=== PATIENT | female | born 1960 | race African-American/Black ===

== ENCOUNTER 2017-02-26 23:19 | Emergency (ER) | payer MEDICAID ==
[~2017-02-26 23:19] MED LIST: DILA100C PO; LEVE500 PO; LISI-519 PO
[2017-02-26 23:22] VITALS: BP 121/75; PULSE 59; RESP 18; TEMP 99; O2SAT 100
[2017-02-26] MEDS ORDERED: SODIUM CHLOR 0.9% 1000 ML INJ 1,000 ML IV ONE (23:31)
[2017-02-26] MEDS ORDERED: SODIUM CHLORIDE 0.9% FLUSH 10 ML FLUSH IVF PRN (23:45)
--- NOTE | 2017-02-26 23:59 | PD ---
HPI Chief Complaint: Altered Mental Status Time Seen by Provider: 23:31 Travel History International Travel<30 days: No Contact w/Intl Traveler<30days: No Traveled to known affect area: No History of Present Illness HPI 56-year-old female presents to the emergency department by EMS transport from home for evaluation of shortness of breath and confusion. EMS reports she may have had a seizure-like event while in the ambulance. No medications were administered episode was brief. 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 No report of incontinence or tongue trauma. No generalized tonic-clonic seizure. Patient does have history of seizure disorder is reportedly on Keppra and Dilantin. Patient here is unable to explain why she came to the hospital. According to paramedics patient was found by herself in the home. Unknown how long patient was by herself. 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 Patient denies any fever. PFSH Past Medical History Narrative Medical Anxiety depression CVA seizure disorder headache hypertension cholecystectomy no tobacco use nursing notes reviewed Asthma: No Blood Disorders: No Anxiety: Yes Depression: Yes Heart Rhythm Problems: No Cancer: No Cardiovascular Problems: No High Cholesterol: No Chemotherapy: No Chest Pain: No Congestive Heart Failure: No COPD: No Cerebrovascular Accident: Yes (STROKE X3- R. SIDED WEAKNESS ) Diabetes: No Diminished Hearing: No Endocrine: No Gastrointestinal Disorders: No GERD: No Genitourinary: No Headaches: Yes Hiatal Hernia: No Hypertension: Yes Implanted Vascular Access Dvce: No Kidney Stones: No Musculoskeletal: Yes (RT SIDE STROKES X 3, chronic pain and spasm.) Neurologic: Yes Psychiatric: Yes Reproductive: No Respiratory: No Immunizations Current: Yes Migraines: No Renal Failure: No Seizures: Yes Sleep Apnea: No Thyroid Disease: No Ulcer: No PNEUMOCCOCAL Vaccine (Year): 3 Menopausal: Yes : 2 Para: 2 Tubal Ligation: Yes Past Surgical History Abdominal Surgery: Yes Cardiac Surgery: No Cholecystectomy: Yes Ear Surgery: No Endocrine Surgery: No Eye Surgery: No Genitourinary Surgery: No Gynecologic Surgery: No Hysterectomy: Yes Neurologic Surgery: No Oral Surgery: No Thoracic Surgery: No Social History Alcohol Use: No Tobacco Use: No Substance Use: No Allergies-Medications (Allergen,Severity, Reaction): Coded Allergies: No Known Allergies (Verified , 08/25/16) Reported Meds & Prescriptions Reported Meds & Active Scripts Active Dilantin (Phenytoin Extended) 100 Mg Cap 100 Mg PO TID Keppra (Levetiracetam) 500 Mg Tab 500 Mg PO BID Reported Cyproheptadine (Cyproheptadine HCl) 4 Mg Tab 4 Mg PO TID Levetiracetam 500 Mg Tab 500 Mg PO BID Lisinopril 5 Mg Tab 5 Mg PO DAILY Review of Systems ROS Limitations: Clinical Condition, Poor Historian Except as stated in HPI: all other systems reviewed are Neg Physical Exam Narrative GENERAL: Well-developed well-nourished female in no acute distress no respiratory distress; GCS 14 SKIN: Warm and dry. HEAD: Atraumatic. Normocephalic. EYES: Pupils equal and round. Extraocular muscles intact. No scleral icterus. No injection or drainage. ENT: No nasal bleeding or discharge. Mucous membranes pink and moist. Airway is patent. NECK: Trachea midline. No JVD. Supple no nuchal rigidity no meningismus. CARDIOVASCULAR: Regular rate and rhythm. RESPIRATORY: No accessory muscle use. Clear to auscultation. Breath sounds equal bilaterally. GASTROINTESTINAL: Abdomen soft, non-tender, nondistended. Hepatic and splenic margins not palpable. MUSCULOSKELETAL: Extremities without clubbing, cyanosis, or edema. No obvious deformities. NEUROLOGICAL: Awake but drowsy. No obvious cranial nerve deficits. Motor grossly within normal limits. Five out of 5 muscle strength in the arms and legs. Normal speech. PSYCHIATRIC: Appropriate mood and affect; insight and judgment normal. Data Data Last Documented VS Vital Signs Date Time Temp Pulse Resp B/P Pulse Ox O2 Delivery O2 Flow Rate FiO2 02/27/17 00:11 18 100 02/26/17 23:22 99.0 59 121/75 Orders Complete Blood Count With Diff (02/26/17 23:31) Alcohol (Ethanol) (02/26/17 23:31) Phenytoin (Dilantin) (02/26/17 23:31) Drug Screen, Random Urine (02/26/17 23:31) Blood Culture (02/26/17 23:31) Electrocardiogram (02/26/17 ) Ct Brain W/O Iv Contrast(Rout) (02/26/17 ) Blood Glucose (02/26/17 23:31) Ecg Monitoring (02/26/17 23:31) Iv Access Insert/Monitor (02/26/17 23:31) Oximetry (02/26/17 23:31) Comprehensive Metabolic Panel (02/26/17 23:31) Sodium Chlor 0.9% 1000 Ml Inj (Ns 1000 M (02/26/17 23:31) Sodium Chloride 0.9% Flush (Ns Flush) (02/26/17 23:45) Ua Includes Microscopic (02/26/17 23:31) Troponin I (02/26/17 23:31) Chest, Single Ap (02/26/17 ) Lactic Acid (02/26/17 23:31) Ammonia (02/26/17 23:31) Fosphenytoin Inj (Cerebyx Inj) (02/27/17 02:00) Fosphenytoin Inj (Cerebyx Inj) (02/27/17 02:00) Labs Laboratory Tests Test 02/26/17 02/26/17 02/26/17 23:35 23:45 23:55 White Blood Count 4.2 TH/MM3 Red Blood Count 4.47 MIL/MM3 Hemoglobin 11.8 GM/DL Hematocrit 36.1 % Mean Corpuscular Volume 80.6 FL Mean Corpuscular Hemoglobin 26.3 PG Mean Corpuscular Hemoglobin 32.7 % Concent Red Cell Distribution Width 15.9 % Platelet Count 136 TH/MM3 Mean Platelet Volume 9.8 FL Neutrophils (%) (Auto) 27.3 % Lymphocytes (%) (Auto) 62.3 % Monocytes (%) (Auto) 6.0 % Eosinophils (%) (Auto) 3.9 % Basophils (%) (Auto) 0.5 % Neutrophils # (Auto) 1.1 TH/MM3 Lymphocytes # (Auto) 2.6 TH/MM3 Monocytes # (Auto) 0.3 TH/MM3 Eosinophils # (Auto) 0.2 TH/MM3 Basophils # (Auto) 0.0 TH/MM3 CBC Comment AUTO DIFF Differential Comment AUTO DIFF CONFIRMED Platelet Estimate LOW Platelet Morphology Comment NORMAL Ovalocytes 1+ Keratocytes OCC Urine Color YELLOW Urine Turbidity CLEAR Urine pH 6.0 Urine Specific [place] 1.025 Urine Protein TRACE mg/dL Urine Glucose (UA) NEG mg/dL Urine Ketones NEG mg/dL Urine Occult Blood MOD Urine Nitrite NEG Urine Bilirubin NEG Urine Urobilinogen LESS THAN 2.0 MG/DL Urine Leukocyte Esterase NEG Urine RBC 6 /hpf Urine WBC 2 /hpf Urine Squamous Epithelial <1 /hpf Cells Urine Hyaline Casts 1 /lpf Urine Waxy Casts 1 /lpf Urine Mucus FEW /lpf Urine Opiates Screen NEG Urine Barbiturates Screen NEG Urine Amphetamines Screen NEG Urine Benzodiazepines Screen NEG Urine Cocaine Screen NEG Urine Cannabinoids Screen POS Sodium Level 142 MEQ/L Potassium Level 3.6 MEQ/L Chloride Level 109 MEQ/L Carbon Dioxide Level 26.9 MEQ/L Anion Gap 6 MEQ/L Blood Urea Nitrogen 17 MG/DL Creatinine 0.60 MG/DL Estimat Glomerular Filtration 125 ML/MIN Rate Random Glucose 91 MG/DL Lactic Acid Level 1.6 mmol/L Calcium Level 8.4 MG/DL Total Bilirubin 0.1 MG/DL Aspartate Amino Transf 16 U/L (AST/SGOT) Alanine Aminotransferase 22 U/L (ALT/SGPT) Alkaline Phosphatase 93 U/L Ammonia 55 MCMOL/L Troponin I LESS THAN 0.02 NG/ML Total Protein 6.6 GM/DL Albumin 3.9 GM/DL Phenytoin (Dilantin) Level 4.9 MCG/ML Ethyl Alcohol Level LESS THAN 3 MG/DL MDM Medical Decision Making Medical Screen Exam Complete: Yes Emergency Medical Condition: Yes Medical Record Reviewed: Yes Interpretation(s) EKG: Sinus bradycardia rate [address] elevation or injury pattern nonspecific T-wave changes septally in V1 V2 Differential Diagnosis Seizure, postictal, TIA, CVA, ICH, CHI, sepsis, electrolyte disturbance, metabolic encephalopathy, overdose Narrative Course 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 Patient is otherwise stable for outpatient management. Diagnosis Primary Impression: Seizure Additional Impressions: Subtherapeutic serum dilantin level Hyperammonemia Use of cannabis Medication refill Referrals: Primary Care Physician 3 days Patient Instructions: General Instructions Additional Instructions: Follow-up with your primary care provider Take medications as prescribed Discontinue cannabis use Do not take these medications with alcoholic beverages Return to the emergency department for any concerns or change in condition Med/Other Pt SpecificInfo: Prescription(s) given Scripts Levetiracetam 500 Mg [id number] Mg PO BID #60 TAB Ref 0 Prov:Karo Amador MD 02/27/17 Phenytoin Extended 100 Mg [id number] Mg PO TID #90 CAP Ref 0 Prov:Karo Amador MD 02/27/17 Disposition: 01 DISCHARGE HOME Condition: Stable Karo Amador MD Feb 26, 2017 23:58
--- NOTE | 2017-02-27 00:07 | RADRPT ---
EXAM DATE/TIME: 02/26/2017 23:35 [facility] COMPARISON: CHEST SINGLE AP, December 16, 2015, 10:18. INDICATIONS : Seizure. Shortness of breath. MEDICAL HISTORY : Unobtainable SURGICAL HISTORY : Unobtainable. ENCOUNTER: Initial ACUITY: 1 day PAIN SCORE: 0/10 LOCATION: Bilateral chest FINDINGS: A single view of the chest demonstrates the lungs to be symmetrically aerated without evidence of mas s, infiltrate or effusion. The cardiomediastinal contours are unremarkable. Osseous structures are intact. CONCLUSION: Normal examination. Chris Garcia MD on February 27, 2017 at 0:05 Board Certified Radiologist. This report was verified electronically.
[2017-02-27 00:11] VITALS: RESP 18; O2SAT 100
[2017-02-27] MEDS ORDERED: LEVE500T8 PO ×2 (00:18→02:38)
[2017-02-27] MEDS ORDERED: CYPR4TAB PO (00:18)
[2017-02-27 00:40] LABS: AUTOMATED NEUTROPHIL # 1.1 TH/MM3 (1.8-7.7); BASOPHIL % 0.5 % (0.0-2.0); EOSINOPHIL # 0.2 TH/MM3 (0-0.4); EOSINOPHIL % 3.9 % (0.0-4.0); HEMATOCRIT 36.1 % (35.0-46.0); LYMPH % 62.3 % (9.0-44.0); LYMPHOCYTE # 2.6 TH/MM3 (1.0-4.8); MEAN CELL VOLUME 80.6 FL (80.0-100.0); MEAN CORPUSCULAR HEMOGLOBIN 26.3 PG (27.0-34.0); MEAN CORPUSCULAR HGB CONC 32.7 % (32.0-36.0); NEUT % 27.3 % (16.0-70.0); PLATELET COUNT 136 TH/MM3 (150-450); RED BLOOD COUNT 4.47 MIL/MM3 (4.00-5.30); RED CELL DISTRIBUTION WIDTH 15.9 % (11.6-17.2); WHITE BLOOD COUNT 4.2 TH/MM3 (4.0-11.0)
--- NOTE | 2017-02-27 00:46 | RADRPT ---
EXAM DATE/TIME: 02/27/2017 00:27 [facility] COMPARISON: No previous studies available for comparison. INDICATIONS : Weakness and numbness in arms. RADIATION DOSE: 32.34 CTDIvol (mGy) MEDICAL HISTORY : Seizures. Hypertension. CVA. SURGICAL HISTORY : Hysterectomy. Cholecystectomy.Tubal ligation. ENCOUNTER: Initial ACUITY: 1 day PAIN SCALE: 0/10 LOCATION: cranial TECHNIQUE: Multiple contiguous axial images were obtained of the head. Using automated exposure control and adj ustment of the mA and/or kV according to patient size, radiation dose was kept as low as reasonably a chievable to obtain optimal diagnostic quality images. DICOM format image data is available electro nically for review and comparison. FINDINGS: CEREBRUM: Extensive encephalomalacia of the left frontal and temporal regions related to an old stroke. The le ft lateral ventricle is enlarged likely ex vacuo dilatation. The ventricles are otherwise normal for age. No evidence of midline shift, mass lesion, hemorrhage or acute infarction. No extra-axial flui d collections are seen. POSTERIOR FOSSA: The cerebellum and brainstem are intact. The 4th ventricle is midline. The cerebellopontine angle i s unremarkable. EXTRACRANIAL: The visualized portion of the orbits is intact. SKULL: The calvaria is intact. No evidence of skull fracture. CONCLUSION: Stable examination. Encephalomalacia in the left frontal and temporal regions, unchanged. Chris Garcia MD on February 27, 2017 at 0:42 Board Certified Radiologist. This report was verified electronically.
[2017-02-27 00:49] LABS: HEMO FLAGS AUTO DIFF
[2017-02-27 00:54] LABS: BLOOD, URINE MOD (NEG); GLUCOSE,URINE NEG (NEG); HYALINE CAST, URINE 1 /lpf (RARE); KETONE, URINE NEG (NEG); MUCUS URINE FEW /lpf (OCC); NITRITE,URINE NEG (NEG); SQUAMOUS EPITHELIAL CELL URINE <1 /hpf (0-5); URINE COLOR YELLOW (YELLW/STRAW); WAXY CAST, URINE 1 /lpf
[2017-02-27 01:41] LABS: ALT (GPT) 22 U/L (10-53); ANION GAP 6 MEQ/L (5-15); AST (GOT) 16 U/L (15-37); BICARBONATE 26.9 MEQ/L (21.0-32.0); BLOOD UREA NITROGEN 17 MG/DL (7-18); CHLORIDE 109 MEQ/L (98-107); GLOMERULAR FILTRATION RATE 125 ML/MIN (>89); POTASSIUM 3.6 MEQ/L (3.5-5.1); SODIUM (NA) 142 MEQ/L (136-145)
[2017-02-27 01:43] LABS: KERATOCYTES OCC (NORMAL); OVALOCYTES 1+ (NORMAL)
[2017-02-27 01:44] LABS: PLATELET ESTIMATE SMEAR LOW (NORMAL); PLATELET MORPHOLOGY NORMAL (NORMAL); SCAN/DIFF AUTO DIFF CONFIRMED
[2017-02-27 01:44] LABS: ALCOHOL LESS THAN 3 MG/DL (0-5)
[2017-02-27 01:45] LABS: ALKALINE PHOSPHATASE 93 U/L (45-117); TOTAL BILIRUBIN ADULT 0.1 MG/DL (0.2-1.0)
[2017-02-27] MEDS ORDERED: FOSPHENYTOIN INJ 800 MGPE in SODIUM CHLORIDE 0.9% INJ 50 ML IV ONE (02:00)
[2017-02-27] MEDS ORDERED: FOSPHENYTOIN INJ 1,000 MGPE in SODIUM CHLORIDE 0.9% INJ 50 ML IV ONE (02:00)
[2017-02-27] MEDS ORDERED: PHEN100C PO (02:38)
--- NOTE | 2017-02-27 10:05 | EKG ---
Date Performed: 02/27/2017 Time Performed: 00:02:03 PTAGE: 56 years EKG: SINUS BRADYCARDIA BORDERLINE ECG Compared to prior electrocardiogram, rate has slowed. PREVIOUS TRACING : 08/11/2016 07.40 DOCTOR: Andrew Redd Interpretating Date/Time 02/27/2017 10:03:46
== END 2017-02-27 03:04 | disposition home or self-care (01) ==
LOC: NEPC 23:19
DX: G40.909 Epilepsy, unspecified, not intractable, without status epilepticus (principal); R06.02 Shortness of breath; E72.20 Disorder of urea cycle metabolism, unspecified; F12.90 Cannabis use, unspecified, uncomplicated; I10 Essential (primary) hypertension; I69.951 Hemiplegia and hemiparesis following unspecified cerebrovascular disease affecting right dominant side; F41.9 Anxiety disorder, unspecified; F32.9 Major depressive disorder, single episode, unspecified; Z79.899 Other long term (current) drug therapy
CPT/HCPCS: 70450; 71010; 80053; 80185; 80307; 81001; 82140; 83605; 84484; 85025; 87040; 87205; 93005; 96361; 96374; 99285; J7030; Q2009

== ENCOUNTER 2017-11-28 21:02 | Emergency (ER) | payer MEDICAID ==
[~2017-11-28] VITALS: Ht 157.5 cm; Wt 50.0 kg
[~2017-11-28 21:02] MED LIST changes: +CYPR4TAB PO; +LEVE500T8 PO; +PHEN100C PO
[2017-11-28 21:40] VITALS: BP 119/73; PULSE 70; RESP 16; TEMP 98.9; O2SAT 98
[2017-11-28] MEDS ORDERED: SODIUM CHLOR 0.9% 1000 ML INJ 1,000 ML IV SCH (21:54)
[2017-11-28 21:59] VITALS: PULSE 70; RESP 16; O2SAT 98
[2017-11-28] MEDS ORDERED: SODIUM CHLORIDE 0.9% FLUSH 10 ML FLUSH IV FLUSH PRN (22:00)
--- NOTE | 2017-11-28 22:10 | PD ---
HPI Chief Complaint: Pain: Acute or Chronic Time Seen by Provider: 21:54 Travel History International Travel<30 days: No Contact w/Intl Traveler<30days: No Traveled to known affect area: No History of Present Illness HPI 57 yo F c/o bilateral thigh pain after working in her yard yesterday afternoon. Onset gradual. Pain in mild and continuous. No injury/fall/trauma mechanism. Severity mild to moderate. PFSH Past Medical History Asthma: No Blood Disorders: No Anxiety: Yes Depression: Yes Heart Rhythm Problems: No Cancer: No Cardiovascular Problems: No High Cholesterol: No Chemotherapy: No Chest Pain: No Congestive Heart Failure: No COPD: No Cerebrovascular Accident: Yes (STROKE X3- R. SIDED WEAKNESS ) Diabetes: No Diminished Hearing: No Endocrine: No Gastrointestinal Disorders: No GERD: No Genitourinary: No Headaches: Yes Hiatal Hernia: No Hypertension: Yes Implanted Vascular Access Dvce: No Kidney Stones: No Musculoskeletal: Yes (RT SIDE STROKES X 3, chronic pain and spasm.) Neurologic: Yes Psychiatric: Yes Reproductive: No Respiratory: No Immunizations Current: Yes Migraines: No Renal Failure: No Seizures: Yes Sleep Apnea: No Thyroid Disease: No Ulcer: No PNEUMOCCOCAL Vaccine (Year): 3 ?: Not Menopausal: Yes : 2 Para: 2 Tubal Ligation: Yes Past Surgical History Abdominal Surgery: Yes Cardiac Surgery: No Cholecystectomy: Yes Ear Surgery: No Endocrine Surgery: No Eye Surgery: No Genitourinary Surgery: No Gynecologic Surgery: No Hysterectomy: Yes Neurologic Surgery: No Oral Surgery: No Thoracic Surgery: No Social History Alcohol Use: No Tobacco Use: No Substance Use: No Allergies-Medications (Allergen,Severity, Reaction): Coded Allergies: No Known Allergies (Verified , 08/25/16) Reported Meds & Prescriptions Reported Meds & Active Scripts Active Ibuprofen 600 Mg Tab 600 Mg PO Q8HR PRN Levetiracetam 500 Mg Tab 500 Mg PO BID Phenytoin Extended 100 Mg Cap 100 Mg PO TID Dilantin (Phenytoin Extended) 100 Mg Cap 100 Mg PO TID Keppra (Levetiracetam) 500 Mg Tab 500 Mg PO BID Reported Cyproheptadine (Cyproheptadine HCl) 4 Mg Tab 4 Mg PO TID Levetiracetam 500 Mg Tab 500 Mg PO BID Lisinopril 5 Mg Tab 5 Mg PO DAILY Review of Systems Except as stated in HPI: all other systems reviewed are Neg General / Constitutional: No: Fever Physical Exam Narrative GENERAL: 57 yo F, WNWD, NAD Vital Signs Date Time Temp Pulse Resp B/P (MAP) Pulse Ox O2 Delivery O2 Flow Rate FiO2 11/28/17 21:59 70 16 98 Room Air 11/28/17 21:40 98.9 70 16 119/73 (88) 98 SKIN: Warm and dry. HEAD: Atraumatic. Normocephalic. EYES: Pupils equal and round. No scleral icterus. No injection or drainage. ENT: No nasal bleeding or discharge. Mucous membranes pink and moist. NECK: Trachea midline. No JVD. CARDIOVASCULAR: Regular rate and rhythm. RESPIRATORY: No accessory muscle use. Clear to auscultation. Breath sounds equal bilaterally. GASTROINTESTINAL: Abdomen soft, non-tender, nondistended. Hepatic and splenic margins not palpable. MUSCULOSKELETAL: Extremities without clubbing, cyanosis, or edema. No obvious deformities. No evidence DVT. NEUROLOGICAL: Patient has normal motor function in all 4 extremities. Speech memory mentation normal. There is no focal cranial nerve deficit. PSYCHIATRIC: Appropriate mood and affect; insight and judgment normal. Data Data Last Documented VS Vital Signs Date Time Temp Pulse Resp B/P (MAP) Pulse Ox O2 Delivery O2 Flow Rate FiO2 11/28/17 21:59 70 16 98 Room Air 11/28/17 21:40 98.9 119/73 (88) Orders Orders Complete Blood Count With Diff (11/28/17 21:54) Comprehensive Metabolic Panel (11/28/17 21:54) Urinalysis - C+S If Indicated (11/28/17 21:54) Iv Access Insert/Monitor (11/28/17 21:54) Ecg Monitoring (11/28/17 21:54) Oximetry (11/28/17 21:54) Sodium Chlor 0.9% 1000 Ml Inj (Ns 1000 M (11/28/17 21:54) Sodium Chloride 0.9% Flush (Ns Flush) (11/28/17 22:00) Creatine Kinase (Cpk) (11/28/17 21:54) Ibuprofen (Motrin) (11/28/17 22:45) CKMB (11/28/17 21:55) CKMB% (4/1/18 21:55) Ed Discharge Order (11/28/17 23:01) Labs Laboratory Tests Test 11/28/17 21:55 White Blood Count 4.6 TH/MM3 Red Blood Count 4.11 MIL/MM3 Hemoglobin 11.2 GM/DL Hematocrit 33.8 % Mean Corpuscular Volume 82.1 FL Mean Corpuscular Hemoglobin 27.2 PG Mean Corpuscular Hemoglobin Concent 33.2 % Red Cell Distribution Width 15.6 % Platelet Count 172 TH/MM3 Mean Platelet Volume 10.0 FL Neutrophils (%) (Auto) 47.4 % Lymphocytes (%) (Auto) 41.8 % Monocytes (%) (Auto) 7.7 % Eosinophils (%) (Auto) 2.3 % Basophils (%) (Auto) 0.8 % Neutrophils # (Auto) 2.2 TH/MM3 Lymphocytes # (Auto) 1.9 TH/MM3 Monocytes # (Auto) 0.4 TH/MM3 Eosinophils # (Auto) 0.1 TH/MM3 Basophils # (Auto) 0.0 TH/MM3 CBC Comment DIFF FINAL Differential Comment Urine Color YELLOW Urine Turbidity CLEAR Urine pH 7.0 Urine Specific [place] 1.015 Urine Protein NEG mg/dL Urine Glucose (UA) NEG mg/dL Urine Ketones NEG mg/dL Urine Occult Blood SMALL Urine Nitrite NEG Urine Bilirubin NEG Urine Urobilinogen LESS THAN 2.0 MG/DL Urine Leukocyte Esterase NEG Urine RBC 3 /hpf Urine WBC 2 /hpf Urine Squamous Epithelial Cells 4 /hpf Urine Amorphous Sediment RARE Urine Mucus FEW /lpf Microscopic Urinalysis Comment CULT NOT INDICATED Blood Urea Nitrogen 17 MG/DL Creatinine 0.62 MG/DL Random Glucose 104 MG/DL Total Protein 6.3 GM/DL Albumin 3.6 GM/DL Calcium Level 8.7 MG/DL Alkaline Phosphatase 79 U/L Aspartate Amino Transf (AST/SGOT) 21 U/L Alanine Aminotransferase (ALT/SGPT) 23 U/L Total Bilirubin 0.1 MG/DL Sodium Level 144 MEQ/L Potassium Level 4.0 MEQ/L Chloride Level 110 MEQ/L Carbon Dioxide Level 26.7 MEQ/L Anion Gap 7 MEQ/L Estimat Glomerular Filtration Rate 120 ML/MIN Total Creatine Kinase 502 U/L Creatine Kinase MB 6.1 NG/ML Creatine Kinase MB % 1.2 % [facility] Medical Decision Making Medical Screen Exam Complete: Yes Emergency Medical Condition: Yes Medical Record Reviewed: Yes Differential Diagnosis electrolyte imbalance, anemia, strain Narrative Course UA: no UTI CBC: normal CMP: essentially unremarkable CK: 502 pain controlled w advil Diagnosis Primary Impression: Bilateral thigh pain Referrals: Primary Care Physician Med/Other Pt SpecificInfo: Prescription(s) given Scripts Ibuprofen (Ibuprofen) 600 Mg Tab 600 MG PO Q8HR Y for PAIN, #20 TAB 0 Refills Prov: Jorje Shields MD 11/28/17 Disposition: 01 DISCHARGE HOME Condition: Stable Jorje Shields MD Nov 28, 2017 22:10
[2017-11-28 22:12] LABS: AUTOMATED NEUTROPHIL # 2.2 TH/MM3 (1.8-7.7); BASOPHIL % 0.8 % (0.0-2.0); EOSINOPHIL # 0.1 TH/MM3 (0-0.4); EOSINOPHIL % 2.3 % (0.0-4.0); HEMATOCRIT 33.8 % (35.0-46.0); HEMOGLOBIN 11.2 GM/DL (11.6-15.3); LYMPH % 41.8 % (9.0-44.0); LYMPHOCYTE # 1.9 TH/MM3 (1.0-4.8); MEAN CELL VOLUME 82.1 FL (80.0-100.0); MEAN CORPUSCULAR HEMOGLOBIN 27.2 PG (27.0-34.0); MEAN CORPUSCULAR HGB CONC 33.2 % (32.0-36.0); MONO % 7.7 % (0.0-8.0); MONOCYTE # 0.4 TH/MM3 (0-0.9); NEUT % 47.4 % (16.0-70.0); PLATELET COUNT 172 TH/MM3 (150-450); RED BLOOD COUNT 4.11 MIL/MM3 (4.00-5.30); RED CELL DISTRIBUTION WIDTH 15.6 % (11.6-17.2); WHITE BLOOD COUNT 4.6 TH/MM3 (4.0-11.0)
[2017-11-28 22:22] LABS: AMORPHOUS SEDIMENT, URINE RARE; BILIRUBIN, URINE NEG (NEG); BLOOD, URINE SMALL (NEG); GLUCOSE,URINE NEG (NEG); KETONE, URINE NEG (NEG); MUCUS URINE FEW /lpf (OCC); NITRITE,URINE NEG (NEG); SQUAMOUS EPITHELIAL CELL URINE 4 /hpf (0-5); URINE COLOR YELLOW (YELLW/STRAW); URINE LEUKOCYTE ESTERASE NEG (NEG)
[2017-11-28] MEDS ORDERED: IBUP-232 PO (22:27)
[2017-11-28 22:41] LABS: ALBUMIN 3.6 GM/DL (3.4-5.0); AST (GOT) 21 U/L (15-37); BICARBONATE 26.7 MEQ/L (21.0-32.0); BLOOD UREA NITROGEN 17 MG/DL (7-18); CALCIUM 8.7 MG/DL (8.5-10.1); CHLORIDE 110 MEQ/L (98-107); CREATININE 0.62 MG/DL (0.50-1.00); GLOMERULAR FILTRATION RATE 120 ML/MIN (>89); GLUCOSE,RANDOM 104 MG/DL (74-106); SODIUM (NA) 144 MEQ/L (136-145)
[2017-11-28 22:42] LABS: ALT (GPT) 23 U/L (10-53)
[2017-11-28 22:44] LABS: ALKALINE PHOSPHATASE 79 U/L (45-117); TOTAL BILIRUBIN ADULT 0.1 MG/DL (0.2-1.0); TOTAL PROTEIN 6.3 GM/DL (6.4-8.2)
[2017-11-28] MEDS ORDERED: IBUPROFEN 600 MG TAB PO ONE (22:45)
== END 2017-11-28 23:35 | disposition home or self-care (01) ==
LOC: NEPD 21:02
DX: M79.651 Pain in right thigh (principal); M79.652 Pain in left thigh; X58.XXXA Exposure to other specified factors, initial encounter; Y93.H9 Activity, other involving exterior property and land maintenance, building and construction; Y92.017 Garden or yard in single-family (private) house as the place of occurrence of the external cause; F41.9 Anxiety disorder, unspecified; F32.9 Major depressive disorder, single episode, unspecified; I10 Essential (primary) hypertension; G89.29 Other chronic pain
CPT/HCPCS: 80053; 81001; 82550; 82552; 85025; 99283; J7030